=== PATIENT | male | born 1940 | race Caucasian/White ===

== ENCOUNTER 2016-09-14 18:50 | Emergency (ER) | payer OTHER ==
[~2016-09-14] VITALS: Ht 175.3 cm; Wt 95.3 kg
[2016-09-14 18:59] VITALS: BP 154/94; PULSE 63; RESP 16; TEMP 97.5; O2SAT 98
[2016-09-14 19:46] LABS: ANION GAP 9 (5-15); CALCIUM 9.3 mg/dL (8.4-11.0); CHLORIDE 103 mmol/L (98-107); CREATININE 1.16 mg/dL (0.55-1.30); GLUCOSE 98 mg/dL (70-99); SODIUM SERUM 136 mmol/L (136-145); UREA NITROGEN, BLOOD 22 mg/dL (8-21)
[2016-09-14 19:49] LABS: BASOPHILS % (AUTO) 0.5 % (0.0-2.0); EOSINOPHILS # (AUTO) 0.1 K/uL (0.0-0.4); EOSINOPHILS % (AUTO) 1.2 % (0.0-4.0); HEMOGLOBIN 15.3 g/dL (14.0-18.0); LYMPHOCYTES % (AUTO) 24.6 % (20.5-51.5); MEAN CORPUSCULAR HEMOGLOBIN 33 pg (27-31); MEAN CORPUSCULAR HGB CONC 33 % (32-36); MEAN CORPUSCULAR VOLUME 98 fL (79.0-98.0); MONOCYTES # (AUTO) 0.6 K/uL (0.0-1.0); MONOCYTES % (AUTO) 6.9 % (1.7-9.3); NEUTROPHILS # (AUTO) 5.6 K/uL (1.8-7.7); NEUTROPHILS % (AUTO) 66.8 % (40.0-70.0); PLATELET COUNT (AUTO) 194 K/uL (130-430); RED BLOOD CELL COUNT(AUTO) 4.69 MIL/uL (4.2-6.2); RED CELL DISTRIBUTION WIDTH 12.6 % (9.0-15.0); WHITE BLOOD COUNT (AUTO) 8.3 K/uL (4.8-10.8)
[2016-09-14 19:51] LABS: ALANINE AMINOTRANSFERASE 27 U/L (12-78); ALBUMIN 3.6 g/dL (3.4-4.8); AMYLASE 82 U/L (0-100); ASPARTATE AMINOTRANSFERASE 13 U/L (10-37); LIPASE 441 U/L (73-393); TOTAL BILIRUBIN 0.5 mg/dL (0.0-1.0); TOTAL PROTEIN, SERUM 8.2 g/dL (6.4-8.3)
[2016-09-14 20:09] LABS: PROTHROMBIN TIME 11.3 SECS (9.5-12.5)
[2016-09-14] MEDS ORDERED: LORazepam 2 MG/ML VIAL (FOR ER USE) IVP ONE (20:30)
[2016-09-14] MEDS ORDERED: KETOROLAC TROMETHAMINE 30 MG VIAL IVP ONE ×2 (20:30→21:30)
[2016-09-14] MEDS ORDERED: fentaNYL CITRATE/PF 100 MCG/2 ML AMP IVP ONE (21:30)
[2016-09-14 22:30] VITALS: BP 148/89; PULSE 68; RESP 18; TEMP 97.6; O2SAT 98
[2016-09-14 23:19] LABS: BILIRUBIN,URINE NEGATIVE (NEGATIVE); BLOOD, URINE NEGATIVE (NEGATIVE); CLARITY/URINE CLEAR (CLEAR); COLOR,URINE YELLOW (YELLOW); GLUCOSE,URINE NEGATIVE (NEGATIVE); KETONES,URINE NEGATIVE (NEGATIVE); LEUKOCYTE ESTERASE ,URINE NEGATIVE (NEGATIVE); NITRITE, URINE NEGATIVE (NEGATIVE); PH,URINE 5.5 (5.0-8.0); PROTEIN URINE NEGATIVE (NEGATIVE); UROBILINOGEN,URINE 0.2 (0.2-1.0)
== END 2016-09-14 23:30 | disposition home or self-care (01) ==
LOC: SED 18:50
DX: K80.20 Calculus of gallbladder without cholecystitis without obstruction (principal); K21.9 Gastro-esophageal reflux disease without esophagitis; I10 Essential (primary) hypertension; I48.91 Unspecified atrial fibrillation
CPT/HCPCS: 36415; 74176; 76700; 80053; 81003; 82150; 83605; 83690; 85025; 85610; 85730; 93005; 96374; 96375; 96376; 99285; J1885; J2060; J3010

== ENCOUNTER 2016-09-15 22:52 | Emergency (ER) | payer OTHER ==
[~2016-09-15] VITALS: Ht 175.3 cm; Wt 95.3 kg
[2016-09-15] MEDS ORDERED: NACL 0.9% 1,000 ML IV ONE (22:56)
[2016-09-15 22:58] VITALS: BP 157/95; PULSE 77; RESP 18; TEMP 97.9; O2SAT 95
[2016-09-15] MEDS ORDERED: ONDANSETRON HCL 4 MG/2 ML VIAL IVP ONE (23:00)
[2016-09-15] MEDS ORDERED: KETOROLAC TROMETHAMINE 30 MG VIAL IVP ONE (23:00)
[2016-09-15] MEDS ORDERED: fentaNYL 75 MCG/HR PATCH TD SCH (23:15)
[2016-09-15 23:27] LABS: BASOPHILS # (AUTO) 0.2 K/uL (0.0-0.2); BASOPHILS % (AUTO) 1.8 % (0.0-2.0); EOSINOPHILS # (AUTO) 0.1 K/uL (0.0-0.4); EOSINOPHILS % (AUTO) 0.6 % (0.0-4.0); HEMOGLOBIN 15.4 g/dL (14.0-18.0); LYMPHOCYTES # (AUTO) 1.9 K/uL (1.0-5.5); LYMPHOCYTES % (AUTO) 16.5 % (20.5-51.5); MEAN CORPUSCULAR HEMOGLOBIN 33 pg (27-31); MEAN CORPUSCULAR HGB CONC 34 % (32-36); MEAN CORPUSCULAR VOLUME 98 fL (79.0-98.0); MONOCYTES # (AUTO) 1.1 K/uL (0.0-1.0); NEUTROPHILS # (AUTO) 8.4 K/uL (1.8-7.7); NEUTROPHILS % (AUTO) 72.1 % (40.0-70.0); PLATELET COUNT (AUTO) 167 K/uL (130-430); RED CELL DISTRIBUTION WIDTH 12.5 % (9.0-15.0); WHITE BLOOD COUNT (AUTO) 11.7 K/uL (4.8-10.8)
[2016-09-15] MEDS ORDERED: fentaNYL CITRATE/PF 100 MCG/2 ML AMP IVP ONE (23:30)
[2016-09-15 23:38] LABS: BILIRUBIN,URINE NEGATIVE (NEGATIVE); BLOOD, URINE NEGATIVE (NEGATIVE); CLARITY/URINE CLEAR (CLEAR); COLOR,URINE YELLOW (YELLOW); GLUCOSE,URINE NEGATIVE (NEGATIVE); KETONES,URINE 1+ (NEGATIVE); LEUKOCYTE ESTERASE ,URINE NEGATIVE (NEGATIVE); NITRITE, URINE NEGATIVE (NEGATIVE); PROTEIN URINE NEGATIVE (NEGATIVE); UROBILINOGEN,URINE 0.2 (0.2-1.0)
[2016-09-15 23:42] LABS: ANION GAP 7 (5-15); CALCIUM 8.9 mg/dL (8.4-11.0); CHLORIDE 102 mmol/L (98-107); CREATININE 1.18 mg/dL (0.55-1.30); GLUCOSE 100 mg/dL (70-99); POTASSIUM 4.2 mmol/L (3.5-5.1); SODIUM SERUM 135 mmol/L (136-145); UREA NITROGEN, BLOOD 27 mg/dL (8-21)
[2016-09-15 23:47] LABS: ALANINE AMINOTRANSFERASE 26 U/L (12-78); ALBUMIN 3.6 g/dL (3.4-4.8); AMYLASE 67 U/L (0-100); ASPARTATE AMINOTRANSFERASE 12 U/L (10-37); LIPASE 329 U/L (73-393); TOTAL BILIRUBIN 0.9 mg/dL (0.0-1.0); TOTAL PROTEIN, SERUM 8.4 g/dL (6.4-8.3)
[2016-09-16 00:48] VITALS: BP 133/74; PULSE 66; RESP 16; TEMP 98.1; O2SAT 98
== END 2016-09-16 00:48 | disposition home or self-care (01) ==
LOC: SED 22:52
DX: K80.50 Calculus of bile duct without cholangitis or cholecystitis without obstruction (principal); K21.9 Gastro-esophageal reflux disease without esophagitis; I10 Essential (primary) hypertension; I48.91 Unspecified atrial fibrillation
CPT/HCPCS: 36415; 80053; 81003; 82150; 83690; 85025; 96361; 96374; 96375; 99284; J1885; J2405; J3010; J7030

== ENCOUNTER 2020-12-18 10:22 | Emergency (ER) | payer OTHER ==
[~2020-12-18] VITALS: Ht 175.3 cm; Wt 100.2 kg
[2020-12-18 10:44] VITALS: BP_SYST 173
[2020-12-18] MEDS ORDERED: IBUPROFEN 400 MG TABLET PO ONE (11:00)
[2020-12-18] MEDS ORDERED: HYDROcodone/ACETAMIN 5-325 MG TAB (NORCO/ VICODIN) PO ONE (11:00)
[2020-12-18] MEDS ORDERED: ACETAMINOPHEN 500 MG TABLET PO ONE (11:30)
[2020-12-18 11:35] LABS: BASOPHILS % (AUTO) 0.6 % (0.0-2.0); EOSINOPHILS # (AUTO) 0.1 K/uL (0.0-0.4); EOSINOPHILS % (AUTO) 1.7 % (0.0-4.0); HEMOGLOBIN 15.4 g/dL (14.0-18.0); LYMPHOCYTES # (AUTO) 1.2 K/uL (1.0-5.5); MEAN CORPUSCULAR HEMOGLOBIN 32 pg (27-31); MEAN CORPUSCULAR HGB CONC 33 % (32-36); MEAN CORPUSCULAR VOLUME 97 fL (79.0-98.0); MONOCYTES # (AUTO) 0.5 K/uL (0.0-1.0); MONOCYTES % (AUTO) 8.4 % (1.7-9.3); NEUTROPHILS # (AUTO) 4.5 K/uL (1.8-7.7); NEUTROPHILS % (AUTO) 70.3 % (40.0-70.0); PLATELET COUNT (AUTO) 169 K/uL (130-430); RED BLOOD CELL COUNT(AUTO) 4.75 MIL/uL (4.2-6.2); RED CELL DISTRIBUTION WIDTH 13.7 % (9.0-15.0); WHITE BLOOD COUNT (AUTO) 6.4 K/uL (4.8-10.8)
[2020-12-18 11:50] LABS: ANION GAP 7 (5-15); CALCIUM 9.4 mg/dL (8.4-11.0); CHLORIDE 102 mmol/L (98-107); CREATININE 1.09 mg/dL (0.55-1.30); GLUCOSE 105 mg/dL (70-99); POTASSIUM 4.3 mmol/L (3.5-5.1); SODIUM SERUM 135 mmol/L (136-145); UREA NITROGEN, BLOOD 24 mg/dL (8-21)
[2020-12-18 12:02] LABS: BILIRUBIN,URINE NEGATIVE (NEGATIVE); BLOOD, URINE NEGATIVE (NEGATIVE); CLARITY/URINE CLEAR (CLEAR); COLOR,URINE YELLOW (YELLOW); GLUCOSE,URINE NEGATIVE (NEGATIVE); KETONES,URINE TRACE (NEGATIVE); LEUKOCYTE ESTERASE ,URINE NEGATIVE (NEGATIVE); NITRITE, URINE NEGATIVE (NEGATIVE); PROTEIN URINE NEGATIVE (NEGATIVE); UROBILINOGEN,URINE 0.2 (0.2-1.0)
[2020-12-18] MEDS ORDERED: LIDO1ADH77 TD (12:28)
[2020-12-18] MEDS ORDERED: ACET325T PO (12:28)
[2020-12-18] MEDS ORDERED: IBUP-1969 PO (12:28)
[2020-12-18 12:43] VITALS: BP_SYST 162
== END 2020-12-18 12:44 | disposition home or self-care (01) ==
LOC: SED 10:22
DX: M54.5 Low back pain (principal); I10 Essential (primary) hypertension; I48.91 Unspecified atrial fibrillation; Z79.899 Other long term (current) drug therapy
CPT/HCPCS: 36415; 80048; 81003; 85025; 99283

== ENCOUNTER 2023-01-22 12:59 | Inpatient (IN) | payer OTHER ==
[~2023-01-22] VITALS: Ht 175.3 cm; Wt 93.9 kg
[~2023-01-22 12:59] MED LIST: ACET325T PO; IBUP-1969 PO; LIDO1ADH77 TD
[2023-01-22 13:06] VITALS: BP_SYST 183; PULSE 87; RESP 22; TEMP 98; O2SAT 97
--- NOTE | 2023-01-22 13:15 | NUR ---
RADIOLOGY AT BEDSIDE - PORTABLE CHEST XRAY
--- NOTE | 2023-01-22 13:20 | NUR ---
# 20 gauge angiocath placed to RFA. Use of asceptic technique. Opsite placed over site. Blood return noted. Blood for lab drawn from site. Flushed with 10 cc of normal saline. No evidence of infiltration noted. Patient tolerated well.
--- NOTE | 2023-01-22 13:20 | NUR ---
PATIENT BIB SELF C/O SOB X 2-3 MONTHS, INCREASED OVER PAST 2 DAYS. WAS SEEN AT URGENT CARE THIS AM BUT THEY DID NOT HAVE CXR CAPABILITIES AND HE WAS SENT TO ED. CURRENTLY O2 SAT 97% ON ROOM AIR. MED HX AFIB, HTN. TAKES XARELLOC. ALANNAA. VSS.
[2023-01-22 13:33] LABS: BASOPHILS # (AUTO) 0.1 K/uL (0.0-0.2); BASOPHILS % (AUTO) 1.2 % (0.0-2.0); EOSINOPHILS # (AUTO) 0.1 K/uL (0.0-0.4); EOSINOPHILS % (AUTO) 1.1 % (0.0-4.0); HEMATOCRIT 44.6 % (36-54); HEMOGLOBIN 14.4 g/dL (14.0-18.0); LYMPHOCYTES # (AUTO) 1.2 K/uL (1.0-5.5); MEAN CORPUSCULAR HEMOGLOBIN 32 pg (27-31); MEAN CORPUSCULAR HGB CONC 32 % (32-36); MEAN CORPUSCULAR VOLUME 99 fL (79.0-98.0); MONOCYTES # (AUTO) 0.7 K/uL (0.0-1.0); NEUTROPHILS # (AUTO) 3.9 K/uL (1.8-7.7); NEUTROPHILS % (AUTO) 65.7 % (40.0-70.0); PLATELET COUNT (AUTO) 155 K/uL (130-430); RED BLOOD CELL COUNT(AUTO) 4.52 MIL/uL (4.2-6.2); RED CELL DISTRIBUTION WIDTH 14.6 % (9.0-15.0); WHITE BLOOD COUNT (AUTO) 5.9 K/uL (4.8-10.8)
[2023-01-22 13:42] LABS: ANION GAP 9 (5-15); CALCIUM 8.9 mg/dL (8.4-11.0); CHLORIDE 106 mmol/L (98-107); CREATININE 1.19 mg/dL (0.55-1.30); GLUCOSE 102 mg/dL (74-106); UREA NITROGEN, BLOOD 18 mg/dL (8-21)
[2023-01-22 13:49] LABS: ALANINE AMINOTRANSFERASE 25 U/L (12-78); ALBUMIN 3.4 g/dL (3.4-4.8); ASPARTATE AMINOTRANSFERASE 18 U/L (10-37); TOTAL BILIRUBIN 1.1 mg/dL (0.0-1.0)
--- NOTE | 2023-01-22 14:28 | NUR ---
SPOKE WITH TIM AT [facility] ANSWERING SERVICE REGARDING NEW ADMISSION FOR PT PER DR. METZ.
[2023-01-22] MEDS ORDERED: cefTRIAXone 1 GM IVPB PREMIX 50 ML IV ONE (14:30)
[2023-01-22] MEDS ORDERED: FUROSEMIDE 20 MG/2 ML VIAL IVP ONE (14:45)
--- NOTE | 2023-01-22 15:21 | NUR ---
Admit bed requested Patient will be admitted to care of Dr. Remedios EDOUARD. Admitted to TELEMETRY unit. Diagnosis CHF, PNEUMONIA Inpatient (Yes or No) Y Observation (Yes or No) N Orientation concerns or request close to nursing station (Yes or No) N Covid Status N/A On vent or bipap N Isolation requirements N Needs a sitter N From Home (Yes or if No enter name of facility) Y Requires Dialysis (Yes or No) N Med Rec Completed (Yes of No) PENDING
[2023-01-22] MEDS ORDERED: DIPHENHYDRAMINE INJ 50 MG/ML VIAL IVP ONE (16:00)
[2023-01-22] MEDS ORDERED: RIVA20TA PO (16:26)
[2023-01-22] MEDS ORDERED: LISI20TA30 PO (16:26)
[2023-01-22] MEDS ORDERED: TAMS-11 PO (16:26)
--- NOTE | 2023-01-22 17:01 | NUR ---
CONSULTATION PAGED REASON FOR CONSULTATION: CHF WAS CONSULT CALLED? Y PERSON WHO WAS NOTIFIED: TEXT MESSAGED KENNEDI NERI CONSULTING PHYSICIAN: KENNEDI NERI COPY CHIEF SPECIALTY: CARDIO COPY CHIEF PHONE NUMBER: [phone] REQUESTING PHYSICIAN: FERNANDO NERI
--- NOTE | 2023-01-22 17:05 | NUR ---
PATIENT ADMITTED TO TELEMETRY UNIT 102A IN STABLE CONDITION. ASSISTED TO BED. REPORT GIVEN TO GISELLE HI AT NURSE'S STATION. MED REC AND BELONGING'S LIST COMPLETED PRIOR TO ADMISSION.
--- NOTE | 2023-01-22 17:07 | NUR ---
CONSULTATION PAGED REASON FOR CONSULTATION: PNEUMONIA WAS CONSULT CALLED? Y PERSON WHO WAS NOTIFIED: VOICEMAIL LEFT CONSULTING PHYSICIAN: AALIYAH DUBON KAIAWHINA KURA [place] MAORI SPECIALTY: DIAGNOSTIC RADIOLOGY KAIAWHINA KURA [place] MAORI PHONE NUMBER: [phone] REQUESTING PHYSICIAN: FERNANDO NERI
[2023-01-22] MEDS ORDERED: ACETAMINOPHEN 325 MG TABLET PO PRN (17:15)
[2023-01-22] MEDS ORDERED: ALBUTEROL SULFATE 0.083% 2.5 MG/3 ML VIAL.NEB INH PRN (17:15)
[2023-01-22] MEDS ORDERED: IBUPROFEN 600 MG TABLET PO PRN (17:15)
[2023-01-22] MEDS ORDERED: IPRATROPIUM BROM 0.5 MG/2.5 ML VIAL.NEB (ATROVENT) INH PRN (17:15)
[2023-01-22] MEDS ORDERED: ONDANSETRON HCL 4 MG/2 ML VIAL IVP PRN (17:15)
--- NOTE | 2023-01-22 17:19 | NUR ---
CONSULTATION PAGED REASON FOR CONSULTATION:PNEUMONIA WAS CONSULT CALLED? Y PERSON WHO WAS NOTIFIED: ZULAY CONSULTING PHYSICIAN: PALMIRA MONTIEL DIRECTOR MICROBIOLOGY SPECIALTY:PULMONARY DIRECTOR MICROBIOLOGY PHONE NUMBER: [phone] REQUESTING PHYSICIAN: FERNANDO NERI
--- NOTE | 2023-01-22 17:50 | NUR ---
CONSULTATION PAGED REASON FOR CONSULTATION:PNEUMONIA WAS CONSULT CALLED? Y PERSON WHO WAS NOTIFIED: OTONIEL CONSULTING PHYSICIAN: MAUREEN ALARCON DIORAMA MODEL MAKER SPECIALTY:ID DIORAMA MODEL MAKER PHONE NUMBER: [phone] REQUESTING PHYSICIAN: FERNANDO NERI
[2023-01-22 17:54] VITALS: BP_SYST 158; PULSE 80; O2SAT 96
--- NOTE | 2023-01-22 19:15 | NUR ---
change of shift.pt.new admission day shift.to attend to admission interventions per day shift rn.pt.presents sob.respiratory status slight labored o2 therapy administered via nasal cannulae.rate:2l/min.no c/o pain,nausea.pt.capable to ambulate unassisted/reposition self.call light/telephone w/in access of the pt.
[2023-01-22 20:00] VITALS: BP_SYST 150; PULSE 58; RESP 16; TEMP 98.1; O2SAT 96
--- NOTE | 2023-01-22 20:00 | NUR ---
pt.assessed.v/s assessed values wnl.o2-sat%=96%.no c/o pain,nausea.pt.apprised snacks/beverages are available w/in the shift.no requests posited@this hour.pt.capable to reposition self.call light/telephone placed w/in access of the pt.
[2023-01-22] MEDS: TAMSULOSIN HCL 0.4 MG CAP PO SCH (20:50)
[2023-01-22] MEDS: RIVAROXABAN 10 MG TABLET PO SCH (20:50)
[2023-01-22] MEDS ORDERED: NON-FORMULARY MEDICATION (Lidocaine 1 PATCH) TD SCH (21:00)
--- NOTE | 2023-01-22 21:00 | NUR ---
2100p medications administered.pt.capable to ingest the po medications w/out difficulty.no requests posited@this hour. call light/telephone w/in access of the pt.
[2023-01-22] MEDS: NORMAL SALINE 5 ML DISP.SYRIN IVF SCH (22:15)
[2023-01-22] MEDS ORDERED: traZODone HCL 50 MG TABLET (DESYREL) ONE (23:19)
--- NOTE | 2023-01-23 | NUR ---
pt.assessed.v/s assessed values wnl.02-sat%=96%.no c/o pain,nausea.no requests posited@this hour.pt.capable to reposition self.call light/telephone placed w/in access of the pt.
[2023-01-23 00:26] VITALS: BP_SYST 149; PULSE 67; RESP 18; TEMP 97.5; O2SAT 96
[2023-01-23] MEDS: traZODone HCL 50 MG TABLET (DESYREL) PO PRN (01:08)
--- NOTE | 2023-01-23 02:00 | NUR ---
pt.assessed.pt.quiescent;somnolent.o2-sat%=96%.per flacc pain mgx pt.absent facial grimaces/body posturing.pt.capable to reposition self.call light/telephone placed w/in access of the pt.
--- NOTE | 2023-01-23 04:00 | NUR ---
pt. assessed.pt.quiescent.0-2-sat%=96%.per flacc pain mgx pt.absent facial grimaces/body posturing.pt.capable to reposition self.call light/telephone placed w/in access of the pt.
[2023-01-23] MEDS: NORMAL SALINE 5 ML DISP.SYRIN IVF SCH ×3 (05:33→21:47)
--- NOTE | 2023-01-23 06:00 | NUR ---
pt.assessed.pt.quiescent.no c/o pain,nausea.pt.capable to reposition self.no requests posited@this hour.call light/telephone w/in access of the pt.pt.weighed in am 2/t hx;chf.
[2023-01-23 06:27] LABS: BASOPHILS # (AUTO) 0.1 K/uL (0.0-0.2); BASOPHILS % (AUTO) 1.1 % (0.0-2.0); EOSINOPHILS # (AUTO) 0.1 K/uL (0.0-0.4); EOSINOPHILS % (AUTO) 2.5 % (0.0-4.0); HEMATOCRIT 43.3 % (36-54); HEMOGLOBIN 14.1 g/dL (14.0-18.0); LYMPHOCYTES # (AUTO) 1.6 K/uL (1.0-5.5); LYMPHOCYTES % (AUTO) 29.5 % (20.5-51.5); MEAN CORPUSCULAR HEMOGLOBIN 32 pg (27-31); MEAN CORPUSCULAR HGB CONC 33 % (32-36); MEAN CORPUSCULAR VOLUME 98 fL (79.0-98.0); MONOCYTES # (AUTO) 0.6 K/uL (0.0-1.0); MONOCYTES % (AUTO) 10.6 % (1.7-9.3); NEUTROPHILS % (AUTO) 56.3 % (40.0-70.0); PLATELET COUNT (AUTO) 130 K/uL (130-430); RED BLOOD CELL COUNT(AUTO) 4.39 MIL/uL (4.2-6.2); RED CELL DISTRIBUTION WIDTH 14.6 % (9.0-15.0); WHITE BLOOD COUNT (AUTO) 5.4 K/uL (4.8-10.8)
[2023-01-23 07:04] LABS: ANION GAP 11 (5-15); CALCIUM 8.9 mg/dL (8.4-11.0); CHLORIDE 106 mmol/L (98-107); CREATININE 1.15 mg/dL (0.55-1.30); GLUCOSE 91 mg/dL (74-106); PHOSPHORUS 4.2 mg/dL (2.7-4.5); UREA NITROGEN, BLOOD 20 mg/dL (8-21)
[2023-01-23 08:00] VITALS: O2SAT 98
[2023-01-23 08:30] VITALS: BP_SYST 141; PULSE 64; RESP 16; TEMP 97.1; O2SAT 98
[2023-01-23] MEDS: lisinopriL 20 MG TABLET PO SCH (10:10)
[2023-01-23] MEDS: LORazepam 2 MG/ML VIAL IVP PRN ×2 (10:34→16:16)
[2023-01-23 13:07] VITALS: BP_SYST 148; PULSE 61; RESP 18; TEMP 97.4; O2SAT 97
[2023-01-23] MEDS ORDERED: FUROSEMIDE 40 MG/4 ML VIAL IVP ONE (15:00)
[2023-01-23] MEDS: cefTRIAXone 1 GM in D5W 50 ML IV SCH (16:15)
[2023-01-23 16:36] VITALS: BP_SYST 154; PULSE 56; RESP 16; TEMP 97.2; O2SAT 95
--- NOTE | 2023-01-23 19:35 | NUR ---
CALLED DR. WILD'S [facility]CHANGE TO REPORT BLOOD CULTURE RESULT. AWAITING A CALL BACK.
[2023-01-23 19:50] VITALS: BP_SYST 122; PULSE 59; RESP 20; TEMP 97; O2SAT 96
--- NOTE | 2023-01-23 19:50 | NUR ---
RECEIVED PT IN BED, AOX4, EVEN AND UNLABORED BREATHING, ON 2L OF O2 VIA N/C, HOB ELEVATED, SL TO RAC PATENT, ON BED REST DUE TO GENERALIZED EDEMA. V/SS, RECEIVED A CALL BACK FROM DR WILD, NOTIFIED HIM ABOUT CRITICAL LAB FOR PT GRAM POSITIVE [employer], DR. WILD SAID OKAY. WILL CONTINUE WITH POC
[2023-01-23] MEDS: FUROSEMIDE 40 MG/4 ML VIAL IVP SCH (21:43)
[2023-01-23] MEDS: TAMSULOSIN HCL 0.4 MG CAP PO SCH (21:43)
[2023-01-23] MEDS: RIVAROXABAN 10 MG TABLET PO SCH (21:46)
[2023-01-23] MEDS ORDERED: VANCOMYCIN HCL 1,500 MG in NS 500 ML IV NR (22:15)
[2023-01-23] MEDS ORDERED: VANCOMYCIN HCL 500 MG/VIAL IV ONE (23:55)
[2023-01-23] MEDS ORDERED: VANCOMYCIN HCL 1000 MG/VIAL IV ONE (23:55)
[2023-01-24 00:19] VITALS: BP_SYST 144; PULSE 56; RESP 20; TEMP 96; O2SAT 96
[2023-01-24 05:28] LABS: BASOPHILS # (AUTO) 0.1 K/uL (0.0-0.2); BASOPHILS % (AUTO) 0.9 % (0.0-2.0); EOSINOPHILS # (AUTO) 0.1 K/uL (0.0-0.4); EOSINOPHILS % (AUTO) 1.9 % (0.0-4.0); HEMATOCRIT 46.2 % (36-54); HEMOGLOBIN 15.3 g/dL (14.0-18.0); LYMPHOCYTES # (AUTO) 1.7 K/uL (1.0-5.5); LYMPHOCYTES % (AUTO) 25.5 % (20.5-51.5); MEAN CORPUSCULAR HEMOGLOBIN 32 pg (27-31); MEAN CORPUSCULAR HGB CONC 33 % (32-36); MEAN CORPUSCULAR VOLUME 98 fL (79.0-98.0); MONOCYTES # (AUTO) 0.6 K/uL (0.0-1.0); MONOCYTES % (AUTO) 9.5 % (1.7-9.3); NEUTROPHILS # (AUTO) 4.2 K/uL (1.8-7.7); NEUTROPHILS % (AUTO) 62.2 % (40.0-70.0); PLATELET COUNT (AUTO) 147 K/uL (130-430); RED BLOOD CELL COUNT(AUTO) 4.73 MIL/uL (4.2-6.2); RED CELL DISTRIBUTION WIDTH 14.9 % (9.0-15.0); WHITE BLOOD COUNT (AUTO) 6.8 K/uL (4.8-10.8)
[2023-01-24 05:51] LABS: ALANINE AMINOTRANSFERASE 20 U/L (12-78); ALBUMIN 3.3 g/dL (3.4-4.8); ANION GAP 11 (5-15); ASPARTATE AMINOTRANSFERASE 13 U/L (10-37); CALCIUM 8.8 mg/dL (8.4-11.0); CHLORIDE 103 mmol/L (98-107); CREATININE 1.33 mg/dL (0.55-1.30); GLUCOSE 91 mg/dL (74-106); PHOSPHORUS 4.6 mg/dL (2.7-4.5); TOTAL BILIRUBIN 1.2 mg/dL (0.0-1.0); UREA NITROGEN, BLOOD 22 mg/dL (8-21)
[2023-01-24] MEDS: NORMAL SALINE 5 ML DISP.SYRIN IVF SCH ×3 (06:00→21:50)
--- NOTE | 2023-01-24 06:44 | NUR ---
PT IN BED, AOX4, EVEN AND UNLABORED BREATHING, ON 2L OF O2 VIA N/C, HOB ELEVATED, SL TO RAC PATENT, PT RECEIVED VANCOMYCIN IV ORDERED AND BLD WORK WAS [facility],ON BED REST DUE TO GENERALIZED EDEMA. V/SS, Addendum: 01/24/23 at 0647 by [facility], GISELLE DESAI PT ON BED, REFUSED TO HAVE CIPAP LAST NIGHT PER RT, VOIDING WELL W/O DIFFICULTY, TOLERATING CARDIAC DIET, SAFETY PREC MAINTAINED, WILL ENDORSE TO AM SHIFT
[2023-01-24 08:00] VITALS: BP_SYST 134; PULSE 50; RESP 18; TEMP 97.4; O2SAT 94
[2023-01-24] MEDS: FUROSEMIDE 40 MG/4 ML VIAL IVP SCH ×2 (09:04→21:47)
[2023-01-24] MEDS: lisinopriL 20 MG TABLET PO SCH (09:04)
[2023-01-24] MEDS: LORazepam 2 MG/ML VIAL IVP PRN ×2 (11:23→18:07)
[2023-01-24 12:26] VITALS: BP_SYST 147; PULSE 57; RESP 18; TEMP 96.5; O2SAT 97
[2023-01-24] MEDS: cefTRIAXone 1 GM in D5W 50 ML IV SCH (14:53)
[2023-01-24 17:18] VITALS: BP_SYST 138; PULSE 55; RESP 17; TEMP 97; O2SAT 95
--- NOTE | 2023-01-24 18:49 | NUR ---
vss, no c/o pain. PRN given per patient request for anxiety. SOB with exertion. 2L NC. pt able to perform ADLs independently. fall precautions in place. tylenol given for headache.
[2023-01-24 21:00] VITALS: BP_SYST 123; PULSE 53; RESP 18; RESP 19; TEMP 97.7; O2SAT 95; O2SAT 96
[2023-01-24] MEDS ORDERED: VANCOMYCIN HCL 1,500 MG in NS 250 ML IV SCH (21:00)
[2023-01-24] MEDS: TAMSULOSIN HCL 0.4 MG CAP PO SCH (21:48)
[2023-01-24] MEDS: RIVAROXABAN 10 MG TABLET PO SCH (21:48)
[2023-01-24] MEDS: traZODone HCL 50 MG TABLET (DESYREL) PO PRN (22:45)
[2023-01-25] VITALS: BP_SYST 115; PULSE 55; RESP 20; TEMP 96.9; O2SAT 95
--- NOTE | 2023-01-25 03:26 | NUR ---
1899 - Received patient in bed, asleep but easily arouses. Alert oriented,verbally responsive.Respiration even and unlabored,no SOB noted at this time, on 02 NC at 2L/m, tolerated it well. No c/o pain or any discomfort at this time. Call light within reach. Addendum: 01/25/23 at 329 by Patti Fischer RN RN 7 : All due meds given, tolerated it well. Addendum: 01/25/23 at 333 by Patti Fischer RN RN Patient still refused to use CPAP, explained risk and benefits but still pt refused. Addendum: 01/25/23 at 0716 by [facility] GISELLE Fischer RN Given report to Antonio DESAI. Patient comfortably sleeping with no complain at this time.
[2023-01-25 04:49] LABS: BASOPHILS # (AUTO) 0.1 K/uL (0.0-0.2); EOSINOPHILS # (AUTO) 0.2 K/uL (0.0-0.4); EOSINOPHILS % (AUTO) 2.9 % (0.0-4.0); HEMATOCRIT 50.1 % (36-54); HEMOGLOBIN 16.5 g/dL (14.0-18.0); LYMPHOCYTES # (AUTO) 2.2 K/uL (1.0-5.5); LYMPHOCYTES % (AUTO) 31.9 % (20.5-51.5); MEAN CORPUSCULAR HEMOGLOBIN 32 pg (27-31); MEAN CORPUSCULAR HGB CONC 33 % (32-36); MEAN CORPUSCULAR VOLUME 99 fL (79.0-98.0); MONOCYTES # (AUTO) 0.7 K/uL (0.0-1.0); MONOCYTES % (AUTO) 10.2 % (1.7-9.3); NEUTROPHILS # (AUTO) 3.7 K/uL (1.8-7.7); PLATELET COUNT (AUTO) 165 K/uL (130-430); RED BLOOD CELL COUNT(AUTO) 5.08 MIL/uL (4.2-6.2); RED CELL DISTRIBUTION WIDTH 14.9 % (9.0-15.0); WHITE BLOOD COUNT (AUTO) 6.9 K/uL (4.8-10.8)
[2023-01-25 05:10] LABS: ALANINE AMINOTRANSFERASE 19 U/L (12-78); ALBUMIN 3.4 g/dL (3.4-4.8); ANION GAP 9 (5-15); ASPARTATE AMINOTRANSFERASE 13 U/L (10-37); CALCIUM 9.2 mg/dL (8.4-11.0); CHLORIDE 101 mmol/L (98-107); CREATININE 1.42 mg/dL (0.55-1.30); GLUCOSE 88 mg/dL (74-106); PHOSPHORUS 5.4 mg/dL (2.7-4.5); TOTAL BILIRUBIN 1.1 mg/dL (0.0-1.0); UREA NITROGEN, BLOOD 30 mg/dL (8-21)
[2023-01-25] MEDS: NORMAL SALINE 5 ML DISP.SYRIN IVF SCH ×3 (06:01→21:10)
--- NOTE | 2023-01-25 07:30 | NUR ---
Initial note: Report received from Lisa. Patient is resting in bed. No pain or discomfort at this time. Bed in the lowest position and side rails x2 up. Call light in reach. Will continue patient care.
[2023-01-25 08:00] VITALS: BP_SYST 120; PULSE 45; RESP 18; TEMP 96.7; O2SAT 2; O2SAT 99
--- NOTE | 2023-01-25 08:26 | NUR ---
Note: patient's heart rate is changing from 41 to 50. Put patient back on telemetry to monitor heart rate
[2023-01-25] MEDS: FUROSEMIDE 40 MG/4 ML VIAL IVP SCH ×2 (08:48→21:10)
[2023-01-25] MEDS: lisinopriL 20 MG TABLET PO SCH (08:49)
--- NOTE | 2023-01-25 09:14 | NUR ---
Note: Dr. Cha Traylor is here on floor. Made aware of patient is on telemetry and will stay on telemetry.
--- NOTE | 2023-01-25 10:45 | NUR ---
CONSULTATION PAGED REASON FOR CONSULTATION:JESU WAS CONSULT CALLED? Y PERSON WHO WAS NOTIFIED:DEANNE CONSULTING PHYSICIAN:CHASE HOLM ([employer]) WALL ATTENDANT SPECIALTY:NEPHRO WALL ATTENDANT PHONE NUMBER: [phone] REQUESTING PHYSICIAN: FERNANDO NERI
[2023-01-25 11:31] VITALS: BP_SYST 105; PULSE 57; RESP 16; TEMP 98.5; O2SAT 95
--- NOTE | 2023-01-25 13:00 | NUR ---
Note: patient is resting in bed. No pain or discomfort at this time. Will continue patient care. Bed in the lowest position and side rails x2 up. Call light in reach.
[2023-01-25] MEDS: LORazepam 2 MG/ML VIAL IVP PRN ×2 (13:22→21:22)
[2023-01-25] MEDS: cefTRIAXone 1 GM in D5W 50 ML IV SCH (14:21)
[2023-01-25 17:11] VITALS: BP_SYST 124; PULSE 58; RESP 17; TEMP 98.1; O2SAT 98
--- NOTE | 2023-01-25 17:34 | NUR ---
Note: Dr. Elise is here to see patient. Asking for the echo is not done yet. Re-enter the order and will do the echo tomorrow.
--- NOTE | 2023-01-25 18:00 | NUR ---
Note: patient is awake alert x4. Call light in reach. Bed in the lowest position and side rails x2 up. Call light in reach. Will continue to monitor.
[2023-01-25 19:30] VITALS: PULSE 81; RESP 16; TEMP 96.3; O2SAT 98
--- NOTE | 2023-01-25 19:48 | NUR ---
Closing Note: reported to Kita. Patient is awake alert x4. Call light in reach. bed in the lowest position and side rails x2 up. No pain or discomfort at this time. Endorse to continue patient care.
[2023-01-25 19:50] VITALS: BP_SYST 120; PULSE 58; RESP 18; TEMP 96.5; O2SAT 98
--- NOTE | 2023-01-25 19:50 | NUR ---
PM ASSESSMENT; -Patient is awake, alert, oriented X 4. Pt denies any chest pain,pain,sob,or any acute distress. Pt is on 2L nc oxy q8ofl=10%. Patient oriented to hospital room, call light, toileting, pain management and safety-teach back done. Patient informed that I (Kita) will be his nurse and that his room number is 102-A. Bed alarmed, side rails x2, call light within reach. Fall precaution in place. Cont to monitor pt.
[2023-01-25] MEDS: TAMSULOSIN HCL 0.4 MG CAP PO SCH (21:09)
[2023-01-25] MEDS: RIVAROXABAN 10 MG TABLET PO SCH (21:10)
--- NOTE | 2023-01-25 21:22 | NUR ---
NOTES; ATIVAN IVP GIVEN -Pt is c/o anxiety, gave Ativan 1mg ivp upon pt's request. Cont to monitor pt.
[2023-01-25] MEDS: traZODone HCL 50 MG TABLET (DESYREL) PO PRN (23:47)
[2023-01-26 00:25] VITALS: BP_SYST 117; PULSE 54; RESP 19; TEMP 97.1; O2SAT 95
--- NOTE | 2023-01-26 00:48 | NUR ---
ROUNDS; -Pt is resting in bed comfortably. No s/s any acute distress noted. A monitor shows bradycardia 48-51 bpm. Pt's condition stable. All safety measures in place. Call light w/in reach. Cont to monitor pt. Addendum: 01/26/23 at 0052 by Travis Fischer, GISELLE DESAI CORRECTION; A MONITOR SHOWS AFIB, 48-51 BPM.
--- NOTE | 2023-01-26 04:12 | NUR ---
ROUNDS; -Pt is asleep. No s/s any acute distress noted. All safety measures in place. Call light w/in reach. Cont to monitor pt.
[2023-01-26] MEDS: NORMAL SALINE 5 ML DISP.SYRIN IVF SCH ×3 (05:36→20:52)
[2023-01-26 05:56] LABS: BASOPHILS # (AUTO) 0.1 K/uL (0.0-0.2); BASOPHILS % (AUTO) 1.2 % (0.0-2.0); EOSINOPHILS # (AUTO) 0.2 K/uL (0.0-0.4); EOSINOPHILS % (AUTO) 3.1 % (0.0-4.0); HEMATOCRIT 47.6 % (36-54); HEMOGLOBIN 15.9 g/dL (14.0-18.0); LYMPHOCYTES # (AUTO) 1.8 K/uL (1.0-5.5); LYMPHOCYTES % (AUTO) 30.3 % (20.5-51.5); MEAN CORPUSCULAR HEMOGLOBIN 32 pg (27-31); MEAN CORPUSCULAR HGB CONC 34 % (32-36); MEAN CORPUSCULAR VOLUME 97 fL (79.0-98.0); MONOCYTES # (AUTO) 0.7 K/uL (0.0-1.0); NEUTROPHILS # (AUTO) 3.1 K/uL (1.8-7.7); NEUTROPHILS % (AUTO) 53.4 % (40.0-70.0); PLATELET COUNT (AUTO) 169 K/uL (130-430); RED BLOOD CELL COUNT(AUTO) 4.91 MIL/uL (4.2-6.2); RED CELL DISTRIBUTION WIDTH 14.6 % (9.0-15.0); WHITE BLOOD COUNT (AUTO) 5.9 K/uL (4.8-10.8)
[2023-01-26 06:15] LABS: ANION GAP 12 (5-15); CHLORIDE 103 mmol/L (98-107); CREATININE 1.32 mg/dL (0.55-1.30); GLUCOSE 90 mg/dL (74-106); PHOSPHORUS 5.4 mg/dL (2.7-4.5); UREA NITROGEN, BLOOD 43 mg/dL (8-21)
--- NOTE | 2023-01-26 06:21 | NUR ---
CLOSING NOTES; -Pt is resting in bed comfortably. No s/s any acute distress noted. IV site patent drsg cdi. Bed alarmed, side rails x2, call light within reach. Fall precaution in place. Pt's condition stable. Will endorse to next nurse to continuity of care.
[2023-01-26 07:34] LABS: ERYTHROCYTE SEDIMENTATION RATE 28 MM/HR (0-15)
[2023-01-26 07:59] VITALS: BP_SYST 124; PULSE 49; RESP 18; TEMP 96.6; O2SAT 98
[2023-01-26 08:00] VITALS: O2SAT 98
--- NOTE | 2023-01-26 08:00 | NUR ---
START OF SHIFT Pt sitting on side of bed eating his breakfast. O2 on at 2L/nc and tele unit attached and intact. IV RFA intact and patent. Bed in low position and bed alarm on. Side rails raised. Call light within reach.
[2023-01-26] MEDS: FUROSEMIDE 40 MG/4 ML VIAL IVP SCH ×2 (08:24→20:51)
[2023-01-26] MEDS: lisinopriL 20 MG TABLET PO SCH (08:25)
--- NOTE | 2023-01-26 10:45 | NUR ---
Note Pt ambulated with steady gait to restroom with standby assist. No O2 on when ambulating and no SOB/resp distress was noted at this time. Pt back in bed and O2 at 2L/nc was reapplied. Call light within reach.
[2023-01-26 12:00] VITALS: BP_SYST 143; PULSE 44; RESP 20; TEMP 97; O2SAT 96
[2023-01-26] MEDS: LORazepam 2 MG/ML VIAL IVP PRN ×2 (13:51→21:05)
[2023-01-26] MEDS: cefTRIAXone 1 GM in D5W 50 ML IV SCH (14:41)
[2023-01-26 16:00] VITALS: BP_SYST 130; PULSE 48; RESP 20; TEMP 96.8; O2SAT 97
--- NOTE | 2023-01-26 18:00 | NUR ---
END OF SHIFT Pt sitting on side of bed eating his dinner. IV in [facility] intact and patent. Tele unit attached and intact. Pt was checked on q1' and PRN all shift for needs and care. Pt was maintained with safety precautions all shift. Bed in low position and side rails raised all shift. Pt and pt's son stated pt has 2 FWW at home and does not require any other equipment for home (eg: BSC or shower chair). Pt's son states he will monitor her diet (2GM NA) make sure she takes her medications on time and as scheduled. Addendum: 01/26/23 at 1835 by Jenn Meadows RN wrong patient END OF SHIFT Pt sitting on side of bed eating his dinner. IV in [facility] intact and patent. Tele unit attached and intact. Pt was checked on q1' and PRN all shift for needs and care. Pt was maintained with safety precautions all shift. Bed in low position and side rails raised all shift.
[2023-01-26 19:42] VITALS: BP_SYST 120; PULSE 53; RESP 18; TEMP 96.6; O2SAT 96
--- NOTE | 2023-01-26 19:42 | NUR ---
PM ASSESSMENT; -Patient is awake, alert, oriented X 4. Pt denies any chest pain,pain,sob,or any acute distress. Pt is on 2L nc oxy k9lez=34%. Patient oriented to hospital room, call light, toileting, pain management and safety-teach back done. Patient informed that I (Kita) will be his nurse and that his room number is 102-A. Bed alarmed, side rails x2, call light within reach. Fall precaution in place. Cont to monitor pt.
[2023-01-26] MEDS: RIVAROXABAN 10 MG TABLET PO SCH (20:51)
[2023-01-26] MEDS: TAMSULOSIN HCL 0.4 MG CAP PO SCH (20:52)
[2023-01-26] MEDS: traZODone HCL 50 MG TABLET (DESYREL) PO PRN (22:28)
--- NOTE | 2023-01-26 23:01 | NUR ---
NOTES; PT REFUSED BED ALARM ON -Pt keep insisting not to have bed alarm on even after educated pt regarding safety measures and including medications that lead to fall risk. Pt stated," I won't get out off bed by myself." I will call you." Pt has nonskid yellow socks, yellow arm bracelet, and floor are dry and room is well lit. Call light w/in reach, side rails x2, bed in lowest position, frequently rounding, removes all clutters and posted fall sign outside the door. Charge nurse informed. Urinal is at bedside. Cont to monitor pt.
--- NOTE | 2023-01-26 23:01 | NUR ---
NOTES; PT REFUSED BED ALARM -Pt keep insisting not to have bed alarm on even after educated pt regarding safety measures and including medications that leads to fall risk. Pt stated, " I won't get out off bed myself, I will call you." Pt wears non skid yellow socks, yellow arm bracelet, and floor are dry and room is well lit. Call light w/in reach, side rails x2, bed in lowest position, frequently rounding, removes all clutters and posted fall sign outside the door. Charge nurse informed. Urinal is at bedside. Cont to monitor pt.
[2023-01-27] VITALS (7 sets, daily range): BP systolic 108–130; PULSE 44–59; RESP 17–20; TEMP 96.1–98.2; O2SAT 93–99
--- NOTE | 2023-01-27 01:25 | NUR ---
ROUNDS; -Pt is asleep. No s/s any acute distress noted. A monitor shows afib 45-48 bpm. Pt's condition stable. All safety measures in place. Call light w/in reach. Cont to monitor pt.
--- NOTE | 2023-01-27 04:23 | NUR ---
ROUNDS; -Pt is asleep. No s/s any acute distress noted. All safety measures in place. Call light w/in reach. Cont to monitor pt.
[2023-01-27] MEDS: NORMAL SALINE 5 ML DISP.SYRIN IVF SCH ×3 (05:23→22:00)
[2023-01-27 05:42] LABS: ERYTHROCYTE SEDIMENTATION RATE 39 MM/HR (0-15)
[2023-01-27 05:55] LABS: BASOPHILS # (AUTO) 0.1 K/uL (0.0-0.2); BASOPHILS % (AUTO) 1.1 % (0.0-2.0); EOSINOPHILS # (AUTO) 0.2 K/uL (0.0-0.4); HEMATOCRIT 49.1 % (36-54); LYMPHOCYTES # (AUTO) 1.9 K/uL (1.0-5.5); MEAN CORPUSCULAR HEMOGLOBIN 32 pg (27-31); MEAN CORPUSCULAR HGB CONC 33 % (32-36); MEAN CORPUSCULAR VOLUME 98 fL (79.0-98.0); MONOCYTES # (AUTO) 0.6 K/uL (0.0-1.0); MONOCYTES % (AUTO) 10.5 % (1.7-9.3); NEUTROPHILS # (AUTO) 2.7 K/uL (1.8-7.7); NEUTROPHILS % (AUTO) 50.4 % (40.0-70.0); PLATELET COUNT (AUTO) 164 K/uL (130-430); RED BLOOD CELL COUNT(AUTO) 5.02 MIL/uL (4.2-6.2); RED CELL DISTRIBUTION WIDTH 14.4 % (9.0-15.0); WHITE BLOOD COUNT (AUTO) 5.4 K/uL (4.8-10.8)
[2023-01-27 05:56] LABS: ANION GAP 9 (5-15); CALCIUM 9.2 mg/dL (8.4-11.0); CHLORIDE 102 mmol/L (98-107); CREATININE 1.38 mg/dL (0.55-1.30); GLUCOSE 96 mg/dL (74-106); PHOSPHORUS 5.3 mg/dL (2.7-4.5); UREA NITROGEN, BLOOD 48 mg/dL (8-21)
[2023-01-27] MEDS: lisinopriL 20 MG TABLET PO SCH (07:42)
[2023-01-27] MEDS: FUROSEMIDE 40 MG/4 ML VIAL IVP SCH ×2 (09:04→22:18)
[2023-01-27] MEDS: cefTRIAXone 1 GM in D5W 50 ML IV SCH (15:29)
[2023-01-27] MEDS: LORazepam 2 MG/ML VIAL IVP PRN (18:45)
--- NOTE | 2023-01-27 20:00 | NUR ---
OPENING NOTES PATIENT IS SITTING UP IN BED AXO 4 WITH NO S/S OF DISTRESS OR DISCOMFORT. BREATHING IS EQUAL AND UNLABORED ON 2 L NC. IVF ARE RUNNING. SAFETY CHECKS ON, CALL LIGHT WITH IN AND WILL CONTINUE TO MONITOR.
[2023-01-27] MEDS: TAMSULOSIN HCL 0.4 MG CAP PO SCH (22:04)
[2023-01-27] MEDS: traZODone HCL 50 MG TABLET (DESYREL) PO PRN (22:04)
[2023-01-27] MEDS: RIVAROXABAN 10 MG TABLET PO SCH (22:05)
--- NOTE | 2023-01-27 23:37 | NUR ---
RD Recommendations *Recommend Renal Diet Monitor PO intakes, GI, skin, and labs Please refer to RD Assessment 01/27/23 for details. KIRSTIN ASHER Addendum: 01/27/23 at [address] Amended: Links added.
[2023-01-28] VITALS (11 sets, daily range): BP systolic 101–136; PULSE 43–93; RESP 12–20; TEMP 97–98.8; O2SAT 95–98
--- NOTE | 2023-01-28 03:36 | NUR ---
ROUNDS PATIENT IS ASLEEP IN BED WITH NO S/S OF DISTRESS OR DISCOMFORT. BREATHING IS EQUAL AND UNLABORED ON 2L NC. SAFETY CHECKS ARE DONE, CALL LIGHT IN REACH AND WILL CONTINUE TO MONITOR.
[2023-01-28] MEDS: NORMAL SALINE 5 ML DISP.SYRIN IVF SCH ×3 (05:50→21:02)
[2023-01-28 06:03] LABS: BASOPHILS # (AUTO) 0.1 K/uL (0.0-0.2); BASOPHILS % (AUTO) 1.3 % (0.0-2.0); EOSINOPHILS # (AUTO) 0.2 K/uL (0.0-0.4); EOSINOPHILS % (AUTO) 2.9 % (0.0-4.0); HEMATOCRIT 49.5 % (36-54); HEMOGLOBIN 16.2 g/dL (14.0-18.0); LYMPHOCYTES # (AUTO) 1.6 K/uL (1.0-5.5); LYMPHOCYTES % (AUTO) 27.4 % (20.5-51.5); MEAN CORPUSCULAR HEMOGLOBIN 32 pg (27-31); MEAN CORPUSCULAR HGB CONC 33 % (32-36); MEAN CORPUSCULAR VOLUME 97 fL (79.0-98.0); MONOCYTES # (AUTO) 0.7 K/uL (0.0-1.0); MONOCYTES % (AUTO) 11.7 % (1.7-9.3); NEUTROPHILS # (AUTO) 3.4 K/uL (1.8-7.7); NEUTROPHILS % (AUTO) 56.7 % (40.0-70.0); PLATELET COUNT (AUTO) 172 K/uL (130-430); RED BLOOD CELL COUNT(AUTO) 5.09 MIL/uL (4.2-6.2); RED CELL DISTRIBUTION WIDTH 14.3 % (9.0-15.0); WHITE BLOOD COUNT (AUTO) 5.9 K/uL (4.8-10.8)
[2023-01-28 06:14] LABS: ERYTHROCYTE SEDIMENTATION RATE 36 MM/HR (0-15)
[2023-01-28 06:26] LABS: ANION GAP 10 (5-15); CALCIUM 9.8 mg/dL (8.4-11.0); CHLORIDE 103 mmol/L (98-107); GLUCOSE 88 mg/dL (74-106); PHOSPHORUS 4.5 mg/dL (2.7-4.5); UREA NITROGEN, BLOOD 50 mg/dL (8-21)
--- NOTE | 2023-01-28 06:43 | NUR ---
CLOSING NOTES PATIENT IS ASLEEP IN BED WITH NO S/S OF DISTRESS OR DISCOMFORT. BREATHING IS EQUAL AND UNLABORED ON 2L NC. IV IS STILL INTACT AND FLUSHED. LINENS ARE CHANGED. ALL NEEDS WERE MET AT THIS TIME. SAFETY CHECKS DONE AND CALL LIGHT WITH IN REACH.
[2023-01-28] MEDS: lisinopriL 20 MG TABLET PO SCH (09:23)
[2023-01-28] MEDS: FUROSEMIDE 40 MG/4 ML VIAL IVP SCH (09:24)
--- NOTE | 2023-01-28 11:51 | NUR ---
I have spoken with DONAVON Junior, and she has been made aware that pt is not a candidate for home oxygen as he tolerated well on RA at rest and ambulation.
--- NOTE | 2023-01-28 12:35 | NUR ---
I have paged Dr. Traylor to inform him that the pt does not require home oxygen at this time. Dr. Lombardo changed IV lasix to PO today. Management requested to call to see if pt may have IV abx changed to PO and possible DC home.
--- NOTE | 2023-01-28 13:07 | NUR ---
Dr. Traylor stated he will speak with ID input for abx therapy.
[2023-01-28] MEDS: cefTRIAXone 1 GM in D5W 50 ML IV SCH (14:45)
--- NOTE | 2023-01-28 15:01 | NUR ---
RAC PIV DC'd d/t to redness and pain at site. New 22G PIV started to the LFA x1 attempt and tolerated well. Ic pack has been placed to the [facility] site.
[2023-01-28] MEDS: LORazepam 2 MG/ML VIAL IVP PRN ×2 (15:08→20:51)
[2023-01-28] MEDS ORDERED: FURO-150 PO (15:13)
[2023-01-28] MEDS ORDERED: TRAZ-250 PO (15:13)
--- NOTE | 2023-01-28 17:47 | NUR ---
I have called DONAVON Junior, to inform her that may discharge after home health has been arranged.
--- NOTE | 2023-01-28 18:58 | NUR ---
I have just attempted to reach DONAVON Junior, to see about home health arrangements again after not receiving a call back. I have also spoken with his nephew Keith who would be the one to olive picker the pt and updated him. Keith's number is [phone].
[2023-01-28] MEDS: TAMSULOSIN HCL 0.4 MG CAP PO SCH (20:54)
[2023-01-28] MEDS: RIVAROXABAN 10 MG TABLET PO SCH (20:54)
[2023-01-28] MEDS: FUROSEMIDE 20 MG TABLET PO SCH (21:03)
[2023-01-29 00:10] VITALS: BP_SYST 115; PULSE 49; RESP 20; TEMP 97.1; O2SAT 95
[2023-01-29] MEDS: traZODone HCL 50 MG TABLET (DESYREL) PO PRN (00:41)
--- NOTE | 2023-01-29 00:43 | NUR ---
requesting sleeping pill Administered Desyrel for sleep as ordered. reviewed side effects and he verbalized understanding. call light w/in reach.
[2023-01-29 05:13] LABS: ERYTHROCYTE SEDIMENTATION RATE 17 MM/HR (0-15)
[2023-01-29 05:21] LABS: BASOPHILS # (AUTO) 0.1 K/uL (0.0-0.2); BASOPHILS % (AUTO) 1.4 % (0.0-2.0); EOSINOPHILS # (AUTO) 0.2 K/uL (0.0-0.4); EOSINOPHILS % (AUTO) 2.8 % (0.0-4.0); HEMATOCRIT 48.2 % (36-54); HEMOGLOBIN 15.9 g/dL (14.0-18.0); LYMPHOCYTES # (AUTO) 1.8 K/uL (1.0-5.5); MEAN CORPUSCULAR HEMOGLOBIN 32 pg (27-31); MEAN CORPUSCULAR HGB CONC 33 % (32-36); MEAN CORPUSCULAR VOLUME 98 fL (79.0-98.0); MONOCYTES # (AUTO) 0.7 K/uL (0.0-1.0); NEUTROPHILS # (AUTO) 3.4 K/uL (1.8-7.7); NEUTROPHILS % (AUTO) 54.8 % (40.0-70.0); PLATELET COUNT (AUTO) 170 K/uL (130-430); RED BLOOD CELL COUNT(AUTO) 4.94 MIL/uL (4.2-6.2); RED CELL DISTRIBUTION WIDTH 14.6 % (9.0-15.0); WHITE BLOOD COUNT (AUTO) 6.2 K/uL (4.8-10.8)
[2023-01-29 05:24] LABS: ANION GAP 8 (5-15); CALCIUM 9.3 mg/dL (8.4-11.0); CHLORIDE 102 mmol/L (98-107); CREATININE 1.31 mg/dL (0.55-1.30); GLUCOSE 88 mg/dL (74-106); PHOSPHORUS 4.3 mg/dL (2.7-4.5); UREA NITROGEN, BLOOD 52 mg/dL (8-21)
[2023-01-29] MEDS: NORMAL SALINE 5 ML DISP.SYRIN IVF SCH (06:45)
[2023-01-29 07:30] VITALS: O2SAT 94
--- NOTE | 2023-01-29 07:30 | NUR ---
OPENING NOTES PATIENT IS SITTING UP IN BED, EATING HIS BREAKFAST AXO 4 WITH NO S/S OF DISTRESS OR DISCOMFORT. BREATHING IS EQUAL AND UNLABORED ON ROOM AIR. IVF PATENT AND INTACT. SAFETY CHECKS ON, CALL LIGHT WITH IN AND WILL CONTINUE TO MONITOR.
[2023-01-29 08:03] VITALS: BP_SYST 118; PULSE 50; RESP 16; TEMP 96.3
[2023-01-29] MEDS: lisinopriL 20 MG TABLET PO SCH (08:58)
[2023-01-29] MEDS: FUROSEMIDE 20 MG TABLET PO SCH (08:59)
--- NOTE | 2023-01-29 09:45 | NUR ---
LOCK MAINTENANCE SUPERVISOR CORNELIA LEGER, [facility] [phone], WILL CONTACT PATIENT FOR SERVICES. PATIENT CAN BE D/C HOME
[2023-01-29 09:58] VITALS: BP_SYST 118; PULSE 50; RESP 16; TEMP 96.3; O2SAT 94
--- NOTE | 2023-01-29 10:21 | NUR ---
CALLED [facility], PARKER CALLED [facility], WHO WILL BE PICKING UP THE PATIENT AND GIVE RIDE HOME, LEFT A VOICEMAIL. PER PATIENT THE NEPHEW AT WORK AND CAN COME AROUND NOON TIME.
--- NOTE | 2023-01-29 11:08 | NUR ---
D/C Patient Patient given medication reconciliation form and D/C instructions. Exit Care provided. Patient verbalized understanding. MD discussed with patient the results and treatment provided. Ambulatory with steady gait for discharge to home. Patient in stable condition, ID band removed. IV catheter removed, intact and dressing applied, no active bleeding. Patient educated on pain management. All belongings sent with patient. [facility] WILL CONTACT THE PATIENT PHONE NUMBER PROVIDED
== END 2023-01-29 11:10 | disposition home health service (06) | DRG 871 ==
LOC: SED 12:59 → STU 15:12 → SMU 01-24 22:21 → STU 01-25 09:19 → SMU 01-27 15:52
PROVIDERS: ADMIT Specialist; ATTEND Specialist
DX: A41.9 Sepsis, unspecified organism (principal); J18.9 Pneumonia, unspecified organism; J96.01 Acute respiratory failure with hypoxia; N17.0 Acute kidney failure with tubular necrosis; I48.20 Chronic atrial fibrillation, unspecified; I13.0 Hypertensive heart and chronic kidney disease with heart failure and stage 1 through stage 4 chronic kidney disease, or unspecified chronic kidney disease; K21.9 Gastro-esophageal reflux disease without esophagitis; I25.10 Atherosclerotic heart disease of native coronary artery without angina pectoris; I50.9 Heart failure, unspecified; E83.39 Other disorders of phosphorus metabolism; N18.9 Chronic kidney disease, unspecified; E80.6 Other disorders of bilirubin metabolism; E83.41 Hypermagnesemia; Z79.1 Long term (current) use of non-steroidal anti-inflammatories (NSAID); Z79.899 Other long term (current) drug therapy
CPT/HCPCS: 36415; 71045; 80048; 80053; 80202; 83605; 83735; 83880; 84100; 84484; 85025; 85651-TC; 87040; 93005; 93306; 94760; 96365; 96375; 99285; G0378; J0696; J1200; J1940; J2060; J3370; J7050; J7060